=== PATIENT | female | born 1990 | race Caucasian/White ===

== ENCOUNTER 2017-04-15 14:52 | Emergency (ER) | payer OTHER, BC ==
[~2017-04-15] VITALS: Ht 160 cm; Wt 63.5 kg
[~2017-04-15 14:52] MED LIST: CEPH500 PO; Norco 5-325 Ta1 EACH PO; ONDA4ODT; PROM25 PO; PROM25S PR; Prenatabs FA T1 EACH PO
[2017-04-15] MEDS ORDERED: ACET500 (15:01)
[2017-04-15] MEDS ORDERED: Flonase 0.05% N16 GM (16:08)
[2017-04-15] MEDS ORDERED: Sudogest30 MG PO (16:08)
[2017-04-15] MEDS ORDERED: BENZ100A PO (16:08)
[2017-04-15] MEDS ORDERED: Cheratussin AC118 ML PO (16:08)
[2018-01-17] MEDS ORDERED: Verotin-Gr Cap1 EACH PO (09:25)
[2018-01-21] MEDS ORDERED: IBUP800 PO (09:30)
[2018-01-21] MEDS ORDERED: ONDA4ODT MM (09:31)
[2018-01-21] MEDS ORDERED: Percocet 5-3251 EACH PO (09:32)
== END 2017-04-15 16:20 | disposition home or self-care (01) ==
LOC: ER 14:52
DX: J10.1 Influenza due to other identified influenza virus with other respiratory manifestations (principal)
CPT/HCPCS: 71046; 96372; 99284; J1885

== ENCOUNTER → 2017-07-11 | Outpatient (CLI) | payer OTHER, BC ==
[~2017-07-11] MED LIST changes: +ACET500; +BENZ100A PO; +Cheratussin AC118 ML PO; +Flonase 0.05% N16 GM; +Sudogest30 MG PO
[2017-07-25 09:08] LABS: CHLAMYDIA BY NAA Negative (Negative); GONOCOCCUS BY NAA Negative (Negative); TRICH VAG BY NAA Negative (Negative)
== END | disposition home or self-care (01) ==
LOC: LAB SHORT 10:07 → LAB 10:07
PROVIDERS: Obstetrics & Gynecology
DX: Z36.89 Encounter for other specified antenatal screening (principal)
CPT/HCPCS: 87491; 87591; 87661; G0123

== ENCOUNTER → 2020-01-17 | Outpatient (CLI) | payer BC ==
[~2020-01-17] MED LIST changes: +IBUP800 PO; +ONDA4ODT MM; +Percocet 5-3251 EACH PO; +Verotin-Gr Cap1 EACH PO
== END | disposition home or self-care (01) ==
LOC: LAB SHORT 18:45 → LAB 18:45
DX: R31.9 Hematuria, unspecified (principal)
CPT/HCPCS: 87077; 87086; 87186

== ENCOUNTER 2022-09-22 09:52 | Day surgery (SDC) | payer BC ==
[2022-09-22] VITALS (17 sets, daily range): BP systolic 109–133; BP diastolic 63–94
[~2022-09-22] VITALS: Ht 162.6 cm; Wt 70.1 kg
[2022-09-22] MEDS ORDERED: NAPR500 PO (10:09)
--- NOTE | 2022-09-22 14:54 | NUR ---
SHIFT SUMMARY/ARRIVAL NOTE PT ARRIVED TO THE FLOOR AROUND 1445 ON A GURNEY, TRANSFERRED OVER TO HER BED VIA SLIDER SHEET, PT DENIES PAIN AT TIME OF ARRIVAL, ABD ASSESSED AND FOUND TO HAVE 4 ABD LAPS THAT WERE DRY AND INTACT WITH SCANT AMT OF DRY SANG DRAINAGE, EDUCATED ON PLAN OF CARE AND OUR TENTATIVE CHECKLIST FOR DC.
--- NOTE | 2022-09-22 19:36 | NUR ---
DISCHARGE SUMMARY POD0 LAVH, A/OX4, VSS, TOLERATING PO, VOIDING WELL, PAIN MANAGED PER EMAR, PT REPORTS HAVING ABD BINDER AT HOME TO PUT ON, SMALL INCREASE IN PAIN AFTER AMBULATION BUT SHE STATES THIS IS TOLERABLE STILL. IV X2 REMOVED PRIOR TO DC. DISCUSSED DISCHARGE INSTRUCTIONS INCLUDING HOME CARE, MEDICATIONS, AND FOLLOW UP INFORMATION WITH HER AND HER . NO QUESTIONS AT THIS TIME. ESCORTED OUT VIA WC TO PRIVATE AUTO TO GO HOME.
== END 2022-09-22 20:05 | disposition home or self-care (01) ==
LOC: ORSCMMR 09:52 → ORD 11:15 → ORSCMMR 11:15 → ORD 11:45 → SURS 13:42 → ORSCMMR 13:42 → SURS 20:05 → ORSCMMR 20:05
PROVIDERS: Obstetrics & Gynecology
PROC: 0UT9FZZ Resection of Uterus, Via Natural or Artificial Opening With Percutaneous Endoscopic Assistance (ICD-10-PCS; principal; 2022-09-22 11:15)
DX: N92.0 Excessive and frequent menstruation with regular cycle (principal); N94.6 Dysmenorrhea, unspecified; N80.03 Adenomyosis of the uterus; K66.0 Peritoneal adhesions (postprocedural) (postinfection)
CPT/HCPCS: 58570; S2900; 88307; A9270; J0690; J1170; J1790; J1885; J2250; J2405; J2704; J3010; J7120